=== PATIENT | female | born 2000 | race Caucasian/White ===

== ENCOUNTER 2024-05-14 18:23 | Emergency (ER) | payer OTHER, MEDICAID ==
[~2024-05-14] VITALS: Ht 165.1 cm; Wt 66.7 kg
[2024-05-14 18:33] VITALS: BP_SYST 99; PULSE 67; RESP 16; TEMP 97.9; O2SAT 97
[2024-05-14] MEDS ORDERED: NAPR-1172 PO (20:36)
[2024-05-14 20:42] VITALS: BP_SYST 121; PULSE 74; RESP 18; TEMP 98.1; O2SAT 97
== END 2024-05-14 20:42 | disposition home or self-care (01) ==
LOC: SED 18:23
DX: S13.8XXA Sprain of joints and ligaments of other parts of neck, initial encounter (principal); S23.3XXA Sprain of ligaments of thoracic spine, initial encounter; Z79.899 Other long term (current) drug therapy; V89.2XXA Person injured in unspecified motor-vehicle accident, traffic, initial encounter; Y93.89 Activity, other specified; Y92.89 Other specified places as the place of occurrence of the external cause; Y99.8 Other external cause status
CPT/HCPCS: 72040; 72072; 81025; 99284